=== PATIENT | female | born 1980 | race Two or more races ===

== ENCOUNTER 2016-11-21 08:38 | Inpatient (IN) | payer BC, MEDICAID ==
[~2016-11-21 08:38] MED LIST: AMOXICILLIN500 M2 PO; FLOXIN10 M1 RIGHT EAR; GLUCOPHAGE1000 M1 PO; LEVEMIR100 UNITS/ SC; NORCO 5-325 TA1 EACH PO; NOVOLOG100 UNITS/
[2016-11-21 10:33] LABS: BASO % 0.2 % (0-2); EOS % 0.9 % (0-7); EOSINOPHIL ABSOLUTE COUNT 0.1 tho/cmm (0.0-0.7); HCT-HEMATOCRIT 34.2 % (34.0-49.0); IMMATURE GRANULOCYTES ABSOLUTE 0.01 tho/cmm (0-0.03); IMMATURE GRANULOCYTES PERCENT 0.1 % (0-0.3); LYMPH % 24.5 % (20-45); LYMPH ABSOLUTE COUNT 2.4 tho/cmm (0.8-4.5); MCH (MEAN CORPUSCULAR HGB) 31.5 pg (28.0-32.0); MCHC MEAN CORPUSCULAR HGB CONC 35.1 % (32.0-36.0); MCV (MEAN CELL VOLUME) 89.8 fl (82.0-96.0); MEAN PLATELET VOLUME 9.8 cmc (9.4-12.4); MONO % 4.2 % (0-12); MONOCYTE ABSOLUTE COUNT 0.4 tho/cmm (0.0-1.2); NEUTROPHILS % 70.1 % (40-80); PLATELET COUNT 203 tho/cmm (150-450); RED BLOOD COUNT 3.81 mil/cmm (4.00-5.20); RED CELL DISTRIBUTION WIDTH 13.2 % (12.4-16.4)
[2016-11-21] MEDS ORDERED: LEVEMIR100 UNITS/ SC ×2 (11:22→11:23)
[2016-11-21] MEDS ORDERED: NOVOLOG100 UNITS/ SC ×3 (11:24→11:25)
[2016-11-21] MEDS ORDERED: AMOXICILLIN500 M1 PO (14:20)
[2016-11-21] MEDS ORDERED: OFLOXACIN5 M3 EACH EAR (14:21)
[2016-11-22 06:25] LABS: BASO % 0.2 % (0-2); EOS % 1.1 % (0-7); EOSINOPHIL ABSOLUTE COUNT 0.1 tho/cmm (0.0-0.7); HCT-HEMATOCRIT 31.2 % (34.0-49.0); HGB-HEMOGLOBIN 10.8 gm/dl (12.0-15.5); IMMATURE GRANULOCYTES ABSOLUTE 0.06 tho/cmm (0-0.03); IMMATURE GRANULOCYTES PERCENT 0.5 % (0-0.3); LYMPH % 28.2 % (20-45); LYMPH ABSOLUTE COUNT 3.4 tho/cmm (0.8-4.5); MCH (MEAN CORPUSCULAR HGB) 31.1 pg (28.0-32.0); MCHC MEAN CORPUSCULAR HGB CONC 34.6 % (32.0-36.0); MCV (MEAN CELL VOLUME) 89.9 fl (82.0-96.0); MONO % 5.6 % (0-12); MONOCYTE ABSOLUTE COUNT 0.7 tho/cmm (0.0-1.2); NEUTROPHIL ABSOLUTE COUNT 7.9 tho/cmm (1.6-8.0); NEUTROPHIL-AUTOMATED 7.9 tho/cmm (1.6-8.0); NEUTROPHILS % 64.4 % (40-80); PLATELET COUNT 222 tho/cmm (150-450); RED BLOOD COUNT 3.47 mil/cmm (4.00-5.20); RED CELL DISTRIBUTION WIDTH 13.2 % (12.4-16.4); WHITE BLOOD COUNT 12.2 tho/cmm (4.0-10.0)
[2016-11-23] MEDS ORDERED: IBUPROFEN800 M1 PO (09:33)
[2016-11-23] MEDS ORDERED: NORCO 5-325 TA1 EACH PO (09:34)
[2016-11-23] MEDS ORDERED: PRENATAL-U CAPS1 CAP PO (09:36)
[2016-11-23] MEDS ORDERED: NOVOLOG100 UNITS/ SC ×2 (09:38→09:53)
[2016-11-23] MEDS ORDERED: LEVEMIR100 UNITS/ SC (09:41)
== END 2016-11-23 15:00 | DRG 774 ==
LOC: LDR 08:38 → OBGD 20:13
PROVIDERS: ADMIT Obstetrics & Gynecology
PROC: 10E0XZZ Delivery of Products of Conception, External Approach (ICD-10-PCS; principal; 2016-11-21)
PROC: 0KQM0ZZ Repair Perineum Muscle, Open Approach (ICD-10-PCS; 2016-11-21)
PROC: 0W8NXZZ Division of Female Perineum, External Approach (ICD-10-PCS; 2016-11-21)
DX: O66.0 Obstructed labor due to shoulder dystocia (principal); O24.12 Pre-existing type 2 diabetes mellitus, in childbirth; O40.3XX0 Polyhydramnios, third trimester, not applicable or unspecified; O24.424 Gestational diabetes mellitus in childbirth, insulin controlled; O34.219 Maternal care for unspecified type scar from previous cesarean delivery; O70.1 Second degree perineal laceration during delivery; Z37.0 Single live birth; Z3A.39 39 weeks gestation of pregnancy; Z79.4 Long term (current) use of insulin; O09.523 Supervision of elderly multigravida, third trimester
CPT/HCPCS: J1815; J2540; J2590